=== PATIENT | female | born 1990 | race African-American/Black ===

== ENCOUNTER → 2018-11-20 | Outpatient (CLI) | payer OTHER ==
--- NOTE | 2018-11-20 16:55 | KCIC ---
PELVIS COMPLETE History: Menorrhagia Comparison: None. Findings: Multiple transabdominal sonographic images of the pelvis are submitted. Uterus measured 10.3 x 4.9 x 6 cm. Endometrium measured 0.5 cm in thickness. Right ovary measured 4 x 3 x 2.5 cm. The left ovary measured 2.8 x 2 x 1.7 cm. There is normal low resistance vascularity of the bilateral ovaries. There is a hypoechoic lesion of the right ovary about 2.1 x 1.8 x 1.8 cm. No free fluid is demonstrated. Impression: 1. There is a right ovarian cyst up to 2 cm, no other abnormality demonstrated. Electronically signed by: Richar Cesar MD (11/20/2018 4:52 PM) [id number]
== END | disposition home or self-care (01) ==
LOC: KCIC US 14:39
PROVIDERS: ATTEND Obstetrics & Gynecology
DX: N83.201 Unspecified ovarian cyst, right side (principal)
CPT/HCPCS: 76856